=== PATIENT | female | born 1995 | race Caucasian/White ===

== ENCOUNTER → 2023-05-08 14:13 | Outpatient (BNVA) | payer OTHER, SELFPAY | PROVIDERS: Visit Provider Registered Nurse Neonatal Intensive Care | DX: R10.9 Unspecified abdominal pain (principal) | CPT/HCPCS: 81000; 81025 ==

== ENCOUNTER 2023-06-20 16:01 | Outpatient (CLI) | payer OTHER, SELFPAY ==
--- NOTE | 2023-06-20 | US_ITS ---
WS: [id number] US pelvic complete* [id number] HISTORY: RLQ pain COMPARISON: None available. Uterus: 9.8 cm x 5.1 cm x 3.6 cm. Normal size anteverted uterus. No fibroid or mass. Endometrium: 0.3 cm. Normal. Right ovary: 2.4 cm x 2.1 cm x 1.8 cm. Normal size and vascularity, no cystic or solid masses. Left ovary: 4.1 cm x 3.2 cm x 2.6 cm. Normal size and vascularity, no cystic or solid masses. Small follicle LEFT ovary measures 2.5 x 1.5 x 2.5 cm. No cyst. No free fluid in the cul-de-sac. IMPRESSION: Normal transabdominal pelvic ultrasound.
== END 2023-06-20 16:02 | disposition home or self-care (01) ==
PROVIDERS: Visit Provider Nurse Practitioner
DX: R10.31 Right lower quadrant pain (principal)
CPT/HCPCS: 76856

== ENCOUNTER → 2023-08-18 11:10 | Outpatient (BNVA) | payer OTHER, SELFPAY | PROVIDERS: PCP Nurse Practitioner; Visit Provider Podiatrist Foot & Ankle Surgery | DX: M79.672 Pain in left foot (principal); M77.42 Metatarsalgia, left foot; Q66.72 Congenital pes cavus, left foot | CPT/HCPCS: 73630; 99203 ==

== ENCOUNTER 2023-08-23 13:37 | Outpatient (CLI) | payer OTHER, SELFPAY ==
--- NOTE | 2023-08-23 13:42 | MR_ITS ---
WS: [id number] MRI LEFT SHOULDER HISTORY: SCAPULA PAIN COMPARISON: None available. TECHNIQUE: Multiplanar sequences of the shoulder joint are submitted. Normal AC joint. There is a small bony protrusion from the undersurface of the acromion with mild enc roachment upon the supraspinatus tendon and muscle. No subacromial or subdeltoid bursal distention. N ormal position of the biceps tendon. No os acromion. No rotator cuff muscle atrophy or edema. No rotator cuff tendon tear. No joint effusion. No labral te ar. IMPRESSION: 1. No labral tear. 2. Very small bony acromial protuberance encroaching upon the supraspinatus tendon.
== END 2023-08-23 13:38 | disposition home or self-care (01) ==
LOC: RAD 13:37
PROVIDERS: PCP Nurse Practitioner; Visit Provider Nurse Practitioner
DX: M25.512 Pain in left shoulder (principal)
CPT/HCPCS: 73221

== ENCOUNTER → 2023-10-20 10:26 | Outpatient (BNVA) | payer OTHER, SELFPAY | PROVIDERS: PCP Nurse Practitioner; Visit Provider Podiatrist Foot & Ankle Surgery | DX: M77.42 Metatarsalgia, left foot; Q66.72 Congenital pes cavus, left foot | CPT/HCPCS: 73630; 99213 ==

== ENCOUNTER → 2023-12-02 10:37 | Outpatient (BNVA) | payer OTHER, SELFPAY | PROVIDERS: PCP Nurse Practitioner; Visit Provider Podiatrist Foot & Ankle Surgery | DX: M77.42 Metatarsalgia, left foot (principal); Q66.72 Congenital pes cavus, left foot | CPT/HCPCS: 99213 ==

== ENCOUNTER 2024-01-06 13:16 | Outpatient (CLI) | payer OTHER, SELFPAY ==
--- NOTE | 2024-01-06 13:26 | MR_ITS ---
WS: [id number] MRI HEAD WITH CONTRAST TECHNIQUE: Sagittal T1, T2 axial, T2 axial FLAIR, axial susceptibility weighted imaging, axial diffus ion weighted images, and coronal T2 images were obtained. Pre and post-T1 axial and post T1 coronal i mages. ADC and FSPGR images. CLINICAL INFORMATION: CHANGE IN MIGRAINES W/BLURRED VISION COMPARISON: None. FINDINGS: No evidence of restricted diffusion to suggest acute ischemia. Ventricular system and basal cisterns are patent. Normal posterior fossa. Normal vascular flow voids at the skull base. No extra-axial flui d collections. No evidence of mass effect. Paranasal sinuses are well aerated. Mastoid air cells are well aerated. No abnormal gadolinium enhancement. No hemosiderin on susceptibility-weighted images. Normal optic ch iasm and pituitary infundibulum. Temporal lobes and hippocampal formations are normal in appearance. Small amount of patchy signal abnormality in the RIGHT posterior frontal lobe near the frontoparietal junction subcortical in location. This has a nonspecific appearance. No surrounding edema or abnorma l gadolinium enhancement. No mass effect. Crowding of the sulci in this area. No other suspicious int racranial signal abnormalities. MR/MR head wo/w con [id number] IMPRESSION: 1. No evidence of restricted diffusion to suggest acute ischemia. 2. Patchy nonspecific T2 signal normality at the RIGHT frontoparietal junction with some abnormal sulcation in this area. No abnormal enhancement. 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 Recommend 3-month follow-up MRI h ead without and with gadolinium enhancement to assess stability. 3. No other suspicious intracranial signal normalities. 4. No hemosiderin on susceptibility-weighted images.
[2024-01-06] MEDS: gadobenate dimeglumine 20 mL vial IV (14:45)
== END 2024-01-06 13:17 | disposition home or self-care (01) ==
LOC: RAD 13:17
PROVIDERS: PCP Nurse Practitioner; Visit Provider Nurse Practitioner
DX: G43.909 Migraine, unspecified, not intractable, without status migrainosus (principal); H53.8 Other visual disturbances
CPT/HCPCS: 70553; A9577

== ENCOUNTER 2024-05-03 09:53 | Outpatient (CLI) | payer OTHER, SELFPAY ==
--- NOTE | 2024-05-03 10:03 | US_ITS ---
WS: [id number] ULTRASOUND BREAST RIGHT TECHNIQUE: Ultrasound right breast focused area of concern. CLINICAL INFORMATION: RIGHT BREAST PAIN WITH LUMP COMPARISON: None. FINDINGS: Ultrasound area of concern in the RIGHT upper quadrant near the 10 o'clock position. Normal underlyin g parenchymal tissue. No cystic or solid lesions. No suspicious lesions to target for biopsy. Finding s are benign. Recommend annual screening mammography age 40 US/US breast RT limited* [id number] IMPRESSION: BI-RADS 2 benign Recommend annual screen mammography age 40
== END 2024-05-03 09:54 | disposition home or self-care (01) ==
LOC: RAD 09:55
PROVIDERS: PCP Nurse Practitioner; Visit Provider Nurse Practitioner
DX: N63.11 Unspecified lump in the right breast, upper outer quadrant (principal)
CPT/HCPCS: 76642

== ENCOUNTER 2024-05-29 15:16 | Emergency (ER) | payer OTHER, SELFPAY ==
[2024-05-29 15:21] VITALS: BP 114/76; PULSE 75; TEMP 36.4; O2SAT 97; BMI 32.5
[2024-05-29] MEDS: sodium chloride 0.9% 1,000 ML 999 ML IV (15:40)
[2024-05-29 15:44] VITALS: BP 113/73; PULSE 72; RESP 16; O2SAT 98
[2024-05-29 15:44] LABS: Basophils # 0.1 10^3/uL (0.0-0.1); Basophils % 0.5 %; Eosinophils # 0.1 10^3/uL (0.0-0.8); Eosinophils % 1.4 %; Hematocrit 44.3 % (36-47); Lymphocytes # 1.4 10^3/uL (0.8-4.8); Lymphocytes % 13.8 %; Mean Platelet Volume 11.6 fL (7.4-10.4); Monocytes # 0.7 10^3/uL (0.2-0.9); Monocytes % 6.3 %; Neutrophils # 7.95 10^3/uL (1.8-7.7); Neutrophils % 77.6 %; Nucleated Red Blood Cells % 0 %; Platelet Count 234 10^3/cmm (157-399); Red Blood Count 4.87 10^6/uL (3.85-5.65); Red Cell Distribution Width 13.2 % (12.1-15.1); White Blood Count 10.24 10^3/uL (3.29-11.43)
--- NOTE | 2024-05-29 15:45 | ED_ITS ---
Documented by User: JULIA Valladares 05/29/24 16:11 HPI - Nausea/Vomiting/Diarrhea 2 General: Chief complaint: Nausea/Vomiting/Diarrhea Stated complaint: diarreah ([facility] ref[facility]) Time Seen by Provider: 05/29/24 15:32 Source: patient Mode of arrival: ambulatory Limitations: no limitations History of Present Illness: Patient is a 29-year-old female presents to ED today at the request of the [facility] for evaluation of diarrhea. Patient states about 2 weeks ago she began having nausea, vomiting, diarrhea. She states the vomiting lasted approximately a week before subsiding. She has not had any additional vomiting over the past week. She has continued to feel incredibly nauseous with eating especially with meat. She states the diarrhea has persisted and at its worst will have approximately 20 loose/watery stools a day. She is not having any bloody stools. She has occasional mild abdominal cramping. She is not having any systemic symptoms/no fevers. She arrives with completely stable vital signs. She had a similar episode approximately a year ago with the diarrhea and was subsequently evaluated by GI in [place]. She states she was essentially told there was no indication for additional workup. Symptoms eventually subsided and have not returned until now. Denies recent antibiotic use. No known poor food exposure or sick contacts. MD elicited complaint: nausea, vomiting and diarrhea Onset (ago): week(s) Description of diarrhea: watery Associated nausea: Yes Associated abdominal pain: Yes Location of pain: Diffuse Radiation: diffuse Pain consistency: intermittent Severity: mild Quality: cramping Exacerbating factors: eating Relieving factors: bowel movement Associated symtoms: Reports nausea; Denies chest pain, dizziness, dysuria, fatigue, headache(s) or malaise Related Data Home Medications Medication Instructions Recorded Confirmed fluoxetine 20 mg capsule cap PO 05/08/23 12/02/23 Previous Rx's Medication Instructions Recorded Custom Inserts L3020 #1 ea 12/02/23 ondansetron 4 mg disintegrating 4 mg PO Q8H PRN nausea and 05/29/24 tablet vomiting #14 tabs Allergies Allergy/AdvReac Type Severity Reaction Status Date / Time Penicillins Allergy ALGY-Anaphy Verified 05/29/24 15:28 laxis pineapple Allergy ALGY-Swell Verified 05/29/24 15:28 Lip/Tongue/Throat Review of Systems 2 Const: Denies: fever(s), chills, body aches, fatigue or malaise Card: Denies: chest pain Resp: Denies: dyspnea GI: Reports: abdominal pain, nausea, vomiting, diarrhea and GI cramping; Denies: hematemesis, constipation, hematochezia or melena : Denies: flank pain, difficulty voiding, dysuria, urinary frequency, urinary urgency, urinary hesitancy or pelvic pain Musc: Denies: back pain Skin/Breast: Denies: rash Neuro: Denies: headache(s) or dizziness Physical Exam 2 Const: COMMON NORMALS: no acute distress, average body habitus, patient oriented x3, no limitations, healthy appearing, alert and well nourished G ENERAL APPEARANCE: cooperative ORIENTATION/CONSCIOUSNESS: Yes awake, Yes oriented to person, Yes oriented to place and Yes oriented to time Eye: COMMON NORMALS: no scleral icterus Resp: COMMON NORMALS: normal respiratory effort and clear to auscultation bilaterally AUSCULTATION: clear to auscultation bilaterally Cardio: COMMON NORMALS: regular rate and regular rhythm RATE: regular rate RHYTHM: regular rhythm GI: COMMON NORMALS: Normal to inspection, nondistended, normoactive bowel sounds present, Soft to palpation, No hepatosplenomegaly present and no masses INSPECTION: Yes normal to inspection AUSCULTATION: Yes normoactive bowel sounds PALPATION: Yes Soft to palpation, Yes Tenderness to palpation present (GI) (mild RUQ/epigastric; non-surgical exam), No Guarding due to palpation present (GI), No Rigid due to palpation and Yes No hepatosplenomegaly present : COMMON NORMALS: Yes no CVA tenderness BLADDER/KIDNEY EXAM: Yes no CVA tenderness Back/Pelvis: COMMON NORMALS: no CVA tenderness and thoracic and lumbar spine normal to inspection Extremity: GENERAL: Yes normal exam except as noted Neuro: COMMON NORMALS: patient oriented x3, moves all extremities, no focal motor deficits, no sensory deficits noted and gait normal S ENSORIUM/ORIENTATION: Yes alert, Yes oriented to person, Yes oriented to place and Yes oriented to time Skin: COMMON NORMALS: no rashes or lesions noted GENERAL SKIN EXAM: no rashes or lesions noted Course 2 Vital Signs: Vital signs: Vital Signs Temperature 97.6 F 05/29/24 15:21 Pulse Rate 89 05/29/24 16:46 Respiratory Rate 14 05/29/24 16:46 Blood Pressure 112/69 05/29/24 16:46 Pulse Oximetry 98 05/29/24 16:46 Oxygen Delivery Me thod Room Air 05/29/24 16:46 MDM - Nausea/Vomiting/Diarrhea Lab Data 05/29/24 15:38 05/29/24 15:38 Radiology Impressions Abdomen/Pelvis CT 05/29/24 16:25 IMPRESSION: 1. No acute findings. 2. Left ovary has a 2.7 cm simple cyst and a 2.1 cm corpus luteal cyst. COMMENTS: Consistent with the [employer]'s Incidental Findings Committee white paper (J Am Juan Radiol 2018): Any incidental renal lesion less than 1 cm or classified as too small to characterize, or any incidental cystic renal lesion characterized as simple-appearing, is likely benign. No follow-up imaging is recommended for these lesions per consensus recommendations based on imaging criteria. Laboratory Results WBC 10.24 10^3/uL (3.29-11.43) 05/29/24 15:38 RBC 4.87 10^6/uL (3.85-5.65) 05/29/24 15:38 Hgb 14.60 g/dL (11.27-16.99) 05/29/24 15:38 Hct 44.3 % (36-47) 05/29/24 15:38 MCV 91.0 fl (85-98) 05/29/24 15:38 MCH 30.0 pg (27-33) 05/29/24 15:38 MCHC 33.0 g/dL (30-55) 05/29/24 15:38 RDW 13.2 % (12.1-15.1) 05/29/24 15:38 Plt Count 234 10^3/cmm (157-399) 05/29/24 15:38 MPV 11.6 fL (7.4-10.4) H 05/29/24 15:38 Neut % (Auto) 77.6 % 05/29/24 15:38 Lymph % (Auto) 13.8 % 05/29/24 15:38 [place] % (Auto) 6.3 % 05/29/24 15:38 Eos % (Auto) 1.4 % 05/29/24 15:38 Baso % (Auto) 0.5 % 05/29/24 15:38 Neut # (Auto) 7.95 10^3/uL (1.8-7.7) H 05/29/24 15:38 Lymph # (Auto) 1.4 10^3/uL (0.8-4.8) 05/29/24 15:38 [place] # (Auto) 0.7 10^3/uL (0.2-0.9) 05/29/24 15:38 Eos # (Auto) 0.1 10^3/uL (0.0-0.8) 05/29/24 15:38 Baso # (Auto) 0.1 10^3/uL (0.0-0.1) 05/29/24 15:38 Nucleated RBC % (auto) 0 % 05/29/24 15:38 Nucleated RBCs # 0.0 /100WBC 05/29/24 15:38 Sodium 135 mmol/L (136-145) L 05/29/24 15:38 Potassium 4.1 mmol/L (3.5-5.1) 05/29/24 15:38 Chloride 101 mmol/L (98-107) 05/29/24 15:38 Carbon Dioxide 23 mmol/L (22-29) 05/29/24 15:38 Anion Gap 15.1 (5-19) 05/29/24 15:38 BUN 13 mg/dL (6-20) 05/29/24 15:38 Creatinine 0.8 mg/dL (0.5-0.9) 05/29/24 15:38 GFR Calculation 84.8 mL/min (90-130) L 05/29/24 15:38 Glucose 88 mg/dL (65-115) 05/29/24 15:38 Calculated Osmolality 280 mOsm/kg (285-295) L 05/29/24 15:38 Calcium 9.0 mg/dL (8.5-10.5) 05/29/24 15:38 Total Bilirubin 0.6 mg/dL (0.15-1.2) 05/29/24 15:38 AST 20 U/L (0-32) 05/29/24 15:38 ALT 24 U/L (0-33) 05/29/24 15:38 Alkaline Phosphatase 57 U/L (35-105) 05/29/24 15:38 Total Protein 7.2 g/dL (6.6-8.7) 05/29/24 15:38 Albumin 4.4 g/dL (3.5-5.2) 05/29/24 15:38 Globulin 2.8 g/dL (1.3-4.6) 05/29/24 15:38 Lipase 40 U/L (13-60) 05/29/24 15:38 HCG, Qual Negative (Negative) 05/29/24 15:38 Urine Color Yellow (Yellow) 05/29/24 16:23 Urine Appearance Cloudy (CLEAR) A 05/29/24 16:23 Urine pH 6.0 (5-7) 05/29/24 16:23 Ur Specific Cameron 1.012 (1.005-1.030) 05/29/24 16:23 Urine Protein Negative (Negative) 05/29/24 16:23 Urine Glucose (UA) Negative (Normal) 05/29/24 16:23 Urine Ketones Negative (Negative) 05/29/24 16:23 Urine Blood Negative (Negative) 05/29/24 16:23 Urine Nitrate Negative (Negative) 05/29/24 16:23 Urine Bilirubin Negative (Negative) 05/29/24 16:23 Urine Urobilinogen 1.0 mg/dL (Negative) 05/29/24 16:23 Ur Leukocyte Esterase Negative (Negative) 05/29/24 16:23 Urine RBC 0-2 /hpf (0-2) 05/29/24 16:23 Urine WBC 0-5 /hpf (0-5) 05/29/24 16:23 Ur Squamous Epith Cells 0-5 /hpf (0-5) 05/29/24 16:23 Amorphous Sediment Not Reportable 05/29/24 16:23 Urine Bacteria None seen /hpf (NONE) 05/29/24 16:23 Hyaline Casts 0-4 /lpf H 05/29/24 16:23 Discharge Plan Discharge Patient Disposition: Home Clinical Impression: Nausea, vomiting and diarrhea Condition: Stable Prescriptions: New ondansetron 4 mg tablet,disintegrating 4 mg PO Q8H PRN (Reason: nausea and vomiting) Qty: 14 0RF No Action fluoxetine 20 mg capsule PO (DME) Custom Inserts L3020 See Rx Instructions .Route .MEDSUPPLY Qty: 1 0RF Rx Instructions: As directed Discharge Orders: Discharge ED (Routine); Ordered 05/29/24 Ordered By: Alicia Sánchez Referrals: Sonia Carbone FNP [Primary Care Provider] - 4-7 days Discharge Diet: Advance as tolerated Discharge Activity: Resume usual activity Patient Instructions: Acute Nausea and Vomiting (DC), Acute Diarrhea (ED) Activity Restrictions/Additional Instructions: As we discussed, if you are not able to give a stool sample here, [facility]. Blood work overall was unremarkable. UA without evidence of infection. Coding Level of Care Code ED Town Marshal for Chg Fwd Documented by User: Alicia Sánchez MD 05/29/24 17:22 HPI - Nausea/Vomiting/Diarrhea 2 General: Chief complaint: Nausea/Vomiting/Diarrhea Stated complaint: diarreah ([facility] ref[facility]) Time Seen by Provider: 05/29/24 15:32 Related Data Home Medications Medication Instructions Recorded Confirmed fluoxetine 20 mg capsule cap PO 05/08/23 12/02/23 Previous Rx's Medication Instructions Recorded Custom Inserts L3020 #1 ea 12/02/23 ondansetron 4 mg disintegrating 4 mg PO Q8H PRN nausea and 05/29/24 tablet vomiting #14 tabs Allergies Allergy/AdvReac Type Severity Reaction Status Date / Time Penicillins Allergy ALGY-Anaphy Verified 05/29/24 15:28 laxis pineapple Allergy ALGY-Swell Verified 05/29/24 15:28 Lip/Tongue/Throat Course 2 Vital Signs: Vital signs: Vital Signs Temperature 97.6 F 05/29/24 15:21 Pulse Rate 89 05/29/24 16:46 Respiratory Rate 14 05/29/24 16:46 Blood Pressure 112/69 05/29/24 16:46 Pulse Oximetry 98 05/29/24 16:46 Oxygen Delivery Me thod Room Air 05/29/24 16:46 MDM - Nausea/Vomiting/Diarrhea Medical Decision Making Patient presents with vomiting she feels much improved here blood work CT is normal she is tolerating p.o. she stable for discharge she is follow-up with PCP return if worsening will prescribe her Zofran. Medical Records I reviewed the patient's medical records. Lab Data I reviewed the patient's lab results. 05/29/24 15:38 05/29/24 15:38 Radiology Impressions Abdomen/Pelvis CT 05/29/24 16:25 IMPRESSION: 1. No acute findings. 2. Left ovary has a 2.7 cm simple cyst and a 2.1 cm corpus luteal cyst. COMMENTS: Consistent with the [employer]'s Incidental Findings Committee white paper (J Am Juan Radiol 2018): Any incidental renal lesion less than 1 cm or classified as too small to characterize, or any incidental cystic renal lesion characterized as simple-appearing, is likely benign. No follow-up imaging is recommended for these lesions per consensus recommendations based on imaging criteria. Laboratory Results WBC 10.24 10^3/uL (3.29-11.43) 05/29/24 15:38 RBC 4.87 10^6/uL (3.85-5.65) 05/29/24 15:38 Hgb 14.60 g/dL (11.27-16.99) 05/29/24 15:38 Hct 44.3 % (36-47) 05/29/24 15:38 MCV 91.0 fl (85-98) 05/29/24 15:38 MCH 30.0 pg (27-33) 05/29/24 15:38 MCHC 33.0 g/dL (30-55) 05/29/24 15:38 RDW 13.2 % (12.1-15.1) 05/29/24 15:38 Plt Count 234 10^3/cmm (157-399) 05/29/24 15:38 MPV 11.6 fL (7.4-10.4) H 05/29/24 15:38 Neut % (Auto) 77.6 % 05/29/24 15:38 Lymph % (Auto) 13.8 % 05/29/24 15:38 [place] % (Auto) 6.3 % 05/29/24 15:38 Eos % (Auto) 1.4 % 05/29/24 15:38 Baso % (Auto) 0.5 % 05/29/24 15:38 Neut # (Auto) 7.95 10^3/uL (1.8-7.7) H 05/29/24 15:38 Lymph # (Auto) 1.4 10^3/uL (0.8-4.8) 05/29/24 15:38 [place] # (Auto) 0.7 10^3/uL (0.2-0.9) 05/29/24 15:38 Eos # (Auto) 0.1 10^3/uL (0.0-0.8) 05/29/24 15:38 Baso # (Auto) 0.1 10^3/uL (0.0-0.1) 05/29/24 15:38 Nucleated RBC % (auto) 0 % 05/29/24 15:38 Nucleated RBCs # 0.0 /100WBC 05/29/24 15:38 Sodium 135 mmol/L (136-145) L 05/29/24 15:38 Potassium 4.1 mmol/L (3.5-5.1) 05/29/24 15:38 Chloride 101 mmol/L (98-107) 05/29/24 15:38 Carbon Dioxide 23 mmol/L (22-29) 05/29/24 15:38 Anion Gap 15.1 (5-19) 05/29/24 15:38 BUN 13 mg/dL (6-20) 05/29/24 15:38 Creatinine 0.8 mg/dL (0.5-0.9) 05/29/24 15:38 GFR Calculation 84.8 mL/min (90-130) L 05/29/24 15:38 Glucose 88 mg/dL (65-115) 05/29/24 15:38 Calculated Osmolality 280 mOsm/kg (285-295) L 05/29/24 15:38 Calcium 9.0 mg/dL (8.5-10.5) 05/29/24 15:38 Total Bilirubin 0.6 mg/dL (0.15-1.2) 05/29/24 15:38 AST 20 U/L (0-32) 05/29/24 15:38 ALT 24 U/L (0-33) 05/29/24 15:38 Alkaline Phosphatase 57 U/L (35-105) 05/29/24 15:38 Total Protein 7.2 g/dL (6.6-8.7) 05/29/24 15:38 Albumin 4.4 g/dL (3.5-5.2) 05/29/24 15:38 Globulin 2.8 g/dL (1.3-4.6) 05/29/24 15:38 Lipase 40 U/L (13-60) 05/29/24 15:38 HCG, Qual Negative (Negative) 05/29/24 15:38 Urine Color Yellow (Yellow) 05/29/24 16:23 Urine Appearance Cloudy (CLEAR) A 05/29/24 16:23 Urine pH 6.0 (5-7) 05/29/24 16:23 Ur Specific Cameron 1.012 (1.005-1.030) 05/29/24 16:23 Urine Protein Negative (Negative) 05/29/24 16:23 Urine Glucose (UA) Negative (Normal) 05/29/24 16:23 Urine Ketones Negative (Negative) 05/29/24 16:23 Urine Blood Negative (Negative) 05/29/24 16:23 Urine Nitrate Negative (Negative) 05/29/24 16:23 Urine Bilirubin Negative (Negative) 05/29/24 16:23 Urine Urobilinogen 1.0 mg/dL (Negative) 05/29/24 16:23 Ur Leukocyte Esterase Negative (Negative) 05/29/24 16:23 Urine RBC 0-2 /hpf (0-2) 05/29/24 16:23 Urine WBC 0-5 /hpf (0-5) 05/29/24 16:23 Ur Squamous Epith Cells 0-5 /hpf (0-5) 05/29/24 16:23 Amorphous Sediment Not Reportable 05/29/24 16:23 Urine Bacteria None seen /hpf (NONE) 05/29/24 16:23 Hyaline Casts 0-4 /lpf H 05/29/24 16:23 All radiology interpretation(s) finalized by discharge Discharge Plan Discharge Patient Disposition: Home Clinical Impression: Nausea, vomiting and diarrhea Condition: Stable Prescriptions: New ondansetron 4 mg tablet,disintegrating 4 mg PO Q8H PRN (Reason: nausea and vomiting) Qty: 14 0RF No Action fluoxetine 20 mg capsule PO (DME) Custom Inserts L3020 See Rx Instructions .Route .MEDSUPPLY Qty: 1 0RF Rx Instructions: As directed Discharge Orders: Discharge ED (Routine); Ordered 05/29/24 Ordered By: Alicia Sánchez Referrals: Sonia Carbone FNP [Primary Care Provider] - 4-7 days Discharge Diet: Advance as tolerated Discharge Activity: Resume usual activity Patient Instructions: Acute Nausea and Vomiting (DC), Acute Diarrhea (ED) Activity Restrictions/Additional Instructions: As we discussed, if you are not able to give a stool sample here, [facility]. Blood work overall was unremarkable. UA without evidence of infection. Coding Level of Care Code ED Town Marshal for Damien Lu
[2024-05-29 15:58] LABS: HCG, Serum Qual Negative (Negative)
[2024-05-29] MEDS: ondansetron 2 mg/ML SDV 2 mL 4 MG IVP (16:01)
[2024-05-29] MEDS: lidocaine 2% viscous 15 ML, aluminum-mag hydrox-simethicon 30 ML, sucralfate oral liq 1 GM PO (16:01)
[2024-05-29 16:02] VITALS: BP 138/88; PULSE 92; RESP 18; O2SAT 95
[2024-05-29 16:03] LABS: Alanine Aminotransferase 24 U/L (0-33); Albumin Level 4.4 g/dL (3.5-5.2); Alkaline Phosphatase 57 U/L (35-105); Anion Gap 15.1 (5-19); Aspartate Amino Transferase 20 U/L (0-32); Blood Urea Nitrogen 13 mg/dL (6-20); Carbon Dioxide 23 mmol/L (22-29); Chloride 101 mmol/L (98-107); Creatinine Clr Calc Pharmacy 110.2277; Globulin 2.8 g/dL (1.3-4.6); Glomerular Filtration Rate 84.8 mL/min (90-130); Glucose 88 mg/dL (65-115); Lipase 40 U/L (13-60); Osmolality Calculated 280 mOsm/kg (285-295); Potassium 4.1 mmol/L (3.5-5.1); Sodium 135 mmol/L (136-145); Total Bilirubin 0.6 mg/dL (0.15-1.2); Total Protein 7.2 g/dL (6.6-8.7)
--- NOTE | 2024-05-29 16:24 | PC.NURSE ---
Patient unable to keep the GI cocktail down. Reports that she just kept dry heaving until she lost it. Otherwise feels a little better. Provider notified of vomiting.
--- NOTE | 2024-05-29 16:25 | CTR_ITS ---
PROCEDURE INFORMATION: Exam: CT Abdomen And Pelvis With Contrast Exam date and time: 05/29/2024 4:34 PM Age: 29 years old Clinical indication: Nausea and vomiting; Additional info: N/v/d; Abdominal cramping TECHNIQUE: Imaging protocol: Computed tomography of the abdomen and pelvis with contrast. Radiation optimization: All CT scans at this facility use at least one of these dose optimization techniques: automated exposure control; mA and/or kV adjustment per patient size (includes targeted exams where dose is matched to clinical indication); or iterative reconstruction. Contrast material: OMNI 350; Contrast volume: 100 ml; Contrast route: INTRAVENOUS (IV); COMPARISON: US pelvic complete* [id number] 06/20/2023 4:36 PM RADIATION DOSE METRICS: Total DLP (mGy-cm): 777 FINDINGS: Lungs: The visualized portions of the lungs are unremarkable. Liver: The liver is unremarkable. Gallbladder and biliary ducts: The gallbladder is unremarkable. No biliary dilation. Pancreas: The pancreas is unremarkable. Spleen: The spleen is unremarkable. Adrenal glands: The adrenal glands are unremarkable. Kidneys and ureters: There is a simple cyst in the right kidney. The left kidney is unremarkable. Stomach and bowel: There is no bowel wall thickening. No bowel obstruction. Appendix: Appendix is not identified. No findings to suggest acute appendicitis. Intraperitoneal space: No significant peritoneal free fluid. No free peritoneal air. Vasculature: The vasculature is unremarkable. No aneurysm. Lymph nodes: No enlarged lymph nodes by size criteria. Urinary bladder: The bladder is unremarkable. Reproductive: 2.7 cm simple cyst within the left ovary. There is also a 2.1 cm corpus luteal cyst within the left ovary. The right ovary and uterus appear unremarkable. Bones/joints: Sacral Tarlov cyst. Scattered Schmorl's nodes and degenerative changes of the spine. Soft tissues: Soft tissues are unremarkable as visualized. CT/CT abdomen pelvis w con* [id number] IMPRESSION: 1. No acute findings. 2. Left ovary has a 2.7 cm simple cyst and a 2.1 cm corpus luteal cyst. COMMENTS: Consistent with the [employer]'s Incidental Findings Committee white paper (J Am Juan Radiol 2018): Any incidental renal lesion less than 1 cm or classified as too small to characterize, or any incidental cystic renal lesion characterized as simple-appearing, is likely benign. No follow-up imaging is recommended for these lesions per consensus recommendations based on imaging criteria.
[2024-05-29] MEDS: iohexol 350 mg/mL 500 mL Btl (per mL) IV (16:37)
[2024-05-29 16:44] LABS: Bilirubin Urine Negative (Negative); Blood Urine Negative (Negative); Glucose Urine UA Negative (Normal); Ketones Urine Negative (Negative); Leukocyte Esterase Urine Negative (Negative); Nitrate Urine Negative (Negative); Protein Urine Negative (Negative); Specific Gravity, Urine 1.012 (1.005-1.030); Urine Appearance Cloudy (CLEAR); Urine Color Yellow (Yellow)
[2024-05-29 16:46] VITALS: BP 112/69; PULSE 89; RESP 14; O2SAT 98
[2024-05-29 16:49] LABS: Add Urine Microscopic? YES; Bacteria Urine None Seen /hpf; Hyaline Casts Urine 0-4 /lpf; RBC Urine 0-2 /hpf (0-2); Squamous Epithelial Cell Urine 0-5 /hpf (0-5); WBC Urine 0-5 /hpf (0-5)
--- NOTE | 2024-05-29 17:00 | PC.NURSE ---
Fluid challenge admin started at 1644- pt tolerating ice chips well. Given apple juice and saltine crackers @ 1701.
[2024-05-29 17:38] VITALS: BP 92/69; PULSE 65; RESP 14; O2SAT 100
== END 2024-05-29 17:42 | disposition home or self-care (01) ==
PROVIDERS: Physician Assistant; Emergency Provider Emergency Medicine; PCP Nurse Practitioner
DX: R11.2 Nausea with vomiting, unspecified (principal); R19.7 Diarrhea, unspecified
CPT/HCPCS: 36415; 74177; 80053; 81001; 83690; 84703; 85025; 96361; 96374; 99285; J2405; J7030

== ENCOUNTER 2024-05-30 12:59 | Outpatient (CLI) | payer OTHER, SELFPAY ==
--- NOTE | 2024-05-30 13:06 | MR_ITS ---
WS: [id number] MRI BRAIN WITH AND WITHOUT CONTRAST HISTORY: CHANGE IN MIGRAINES W/BLURRED VISION COMPARISON: 02/02/2024 TECHNIQUE: Multiplanar imaging performed through the brain with MultiHance 18 ml's IV. Reidentified is a focal region of patchy signal abnormality in the RIGHT posterior frontal lobe near the frontoparietal junction. Similar to the prior examination with a few cystic areas in crowding of the sulci. No interval change and there is no enhancement. No atrophy or prior infarct. No hemorrhage or mass effect. No temporal lobe atrophy. No susceptibility artifacts or prior lacunar infarcts. Ventricles and extra-axial spaces are normal. Clivus and pituitary gland are normal. Visualized posterior fossa and brainstem are also normal. Postcontrast images are negative for masses or vascular malformations. Dural venous sinuses are normal. Paranasal sinuses: Well aerated with no significant disease. Mastoid air cells: Normal. Calvarium and scalp: Normal. MR/MR head wo/w con [id number] IMPRESSION: 1. No acute infarct or abnormal enhancement. 2. Stable patchy nonspecific T2 signal abnormality in the RIGHT frontal pariet al junction. Similar to the prior study with no enhancement. This is probably f rom a prior remote insult. Similar to the prior examination. 3. Normal ventricles.
[2024-05-30] MEDS: gadobenate dimeglumine 20 mL vial IV (13:33)
== END 2024-05-30 13:00 | disposition home or self-care (01) ==
LOC: RAD 13:00
PROVIDERS: PCP Nurse Practitioner; Visit Provider Nurse Practitioner
DX: R94.02 Abnormal brain scan (principal)
CPT/HCPCS: 70553

== ENCOUNTER 2024-08-04 11:57 | Emergency (ER) | payer OTHER, SELFPAY ==
[2024-08-04 12:48] VITALS: BP 133/88; PULSE 68; RESP 18; TEMP 36.7; O2SAT 100; BMI 34.5
--- NOTE | 2024-08-04 13:34 | ED_ITS ---
HPI - Back Pain/Injury 2 General: Chief Complaint: Back Pain/Injury Stated Complaint: low back pain Time Seen by Provider: 08/04/24 13:23 History of Present Illness: 29-year-old female presents emergency ro om complaining of low back pain. Pain in the low back radiating into the right lateral thigh. She also has a little bit of dysuria. She denies any hematuria. Pain has been for for the last few days. She cannot recall particular precipitating injury she did notice when trying to lift her children and seem to be more more painful. Associated symptoms: Deny abdominal pain, chills, dysuria, fever(s) or urinary urgency Related Data Previous Rx's Medication Instructions Recorded Custom Inserts [id number] #1 ea 12/02/23 diclofenac sodium 75 mg 75 mg PO Q12H PRN pain #20 tabs 08/04/24 tablet,delayed release prednisone 20 mg tablet 20 mg PO TID #15 tabs 08/04/24 tizanidine 4 mg tablet 4 mg PO Q6H PRN muscle spasticity 08/04/24 #20 tabs Allergies Allergy/AdvReac Type Severity Reaction Status Date / Time Penicillins Allergy ALGY-Anaphy Verified 05/29/24 15:28 laxis pineapple Allergy ALGY-Swell Verified 05/29/24 15:28 Lip/Tongue/Throat Review of Systems 2 Const: Denies: fever(s) or chills Card: Denies: chest pain Resp: Denies: dyspnea GI: Denies: abdominal pain : Denies: dysuria, urinary frequency or urinary urgency Musc: Reports: back pain; Denies: neck pain Skin/Breast: Denies: rash [facility] ED 2 PFSH: Medical History (Updated 08/04/24 @ 16:27 by Pito Bennett DO) Cavus deformity of left foot Metatarsalgia of left foot Physical Exam 2 Const: COMMON NORMALS: no acute distress GENERAL APPEARANCE: cooperative and comfortable ORIENTATION/CONSCIOUSNESS: Yes awake, Yes oriented to person, Yes oriented to place and Yes oriented to time HENMT: COMMON NORMALS: normocephalic, atraumatic and hearing grossly normal bilaterally HEAD & SCALP: normocephalic and atraumatic Resp: COMMON NORMALS: normal respiratory effort, No retractions, No use of accessory muscles and clear to auscultation bilaterally AUSCULTATION: clear to auscultation bilaterally Cardio: COMMON NORMALS: regular rate, regular rhythm and No murmurs present (Cardio) RATE: regular rate RHYTHM: regular rhythm GI: COMMON NORMALS: Soft to palpation and No hepatosplenomegaly present A USCULTATION: Yes normoactive bowel sounds PALPATION: Yes Soft to palpation, No Tenderness to palpation present (GI), No Guarding due to palpation present (GI) and Yes No hepatosplenomegaly present Extremity: COMMON NORMALS: normal to inspection, capillary refill normal, no clubbing, cyanosis or edema, no calf tenderness and no pedal edema Neuro: SENSORIUM/ORIENTATION: Yes oriented to person, Yes oriented to place and Yes oriented to time OTHER: Deep tendon reflexes in the lower extremities +1 in the right patellar tendon +2 in the left patellar tendon straight leg raising negative neurovascularly intact dorsum plantarflexion active 5 of 5. Skin: COMMON NORMALS: no rashes or lesions noted GENERAL SKIN EXAM: no rashes or lesions noted Course 2 Vital Signs: Vital signs: Vital Signs Temperature 98.1 F 08/04/24 12:48 Pulse Rate 54 L 08/04/24 16:44 Respiratory Rate 18 08/04/24 12:48 Blood Pressure 99/53 08/04/24 16:44 Pulse Oximetry 100 08/04/24 16:44 Oxygen Delivery Me thod Room Air 08/04/24 12:48 MDM - Back Pain/Injury Medical Decision Making Patient has improvement of her symptoms we will discharge home with steroid taper diclofenac and tizanidine. UA was negative. Follow-up with primary care if not improving or worsens may need further evaluation or treatment options as directed by primary care. Medical Records I reviewed the patient's medical records. Labs I reviewed the patient's lab results. 08/04/24 14:00 08/04/24 14:00 Laboratory Results WBC 6.15 10^3/uL (3.29-11.43) 08/04/24 14:00 RBC 4.79 10^6/uL (3.85-5.65) 08/04/24 14:00 Hgb 14.30 g/dL (11.27-16.99) 08/04/24 14:00 Hct 43.7 % (36-47) 08/04/24 14:00 MCV 91.2 fl (85-98) 08/04/24 14:00 MCH 29.9 pg (27-33) 08/04/24 14:00 MCHC 32.7 g/dL (30-55) 08/04/24 14:00 RDW 12.9 % (12.1-15.1) 08/04/24 14:00 Plt Count 256 10^3/cmm (157-399) 08/04/24 14:00 MPV 11.4 fL (7.4-10.4) H 08/04/24 14:00 Neut % (Auto) 64.2 % 08/04/24 14:00 Lymph % (Auto) 26.8 % 08/04/24 14:00 [place] % (Auto) 5.2 % 08/04/24 14:00 Eos % (Auto) 2.8 % 08/04/24 14:00 Baso % (Auto) 0.7 % 08/04/24 14:00 Neut # (Auto) 3.95 10^3/uL (1.8-7.7) 08/04/24 14:00 Lymph # (Auto) 1.7 10^3/uL (0.8-4.8) 08/04/24 14:00 [place] # (Auto) 0.3 10^3/uL (0.2-0.9) 08/04/24 14:00 Eos # (Auto) 0.2 10^3/uL (0.0-0.8) 08/04/24 14:00 Baso # (Auto) 0.0 10^3/uL (0.0-0.1) 08/04/24 14:00 Nucleated RBC % (auto) 0 % 08/04/24 14:00 Nucleated RBCs # 0.0 /100WBC 08/04/24 14:00 Sodium 139 mmol/L (136-145) 08/04/24 14:00 Potassium 4.3 mmol/L (3.5-5.1) 08/04/24 14:00 Chloride 103 mmol/L (98-107) 08/04/24 14:00 Carbon Dioxide 26 mmol/L (22-29) 08/04/24 14:00 Anion Gap 14.3 (5-19) 08/04/24 14:00 BUN 15 mg/dL (6-20) 08/04/24 14:00 Creatinine 0.8 mg/dL (0.5-0.9) 08/04/24 14:00 GFR Calculation 84.8 mL/min (90-130) L 08/04/24 14:00 Glucose 78 mg/dL (65-115) 08/04/24 14:00 Calculated Osmolality 288 mOsm/kg (285-295) 08/04/24 14:00 Calcium 9.2 mg/dL (8.5-10.5) 08/04/24 14:00 Total Bilirubin 0.4 mg/dL (0.15-1.2) 08/04/24 14:00 AST 13 U/L (0-32) 08/04/24 14:00 ALT 10 U/L (0-33) 08/04/24 14:00 Alkaline Phosphatase 56 U/L (35-105) 08/04/24 14:00 Total Protein 7.2 g/dL (6.6-8.7) 08/04/24 14:00 Albumin 4.7 g/dL (3.5-5.2) 08/04/24 14:00 Globulin 2.5 g/dL (1.3-4.6) 08/04/24 14:00 Urine Color Yellow (Yellow) 08/04/24 15:43 Urine Appearance Clear (CLEAR) 08/04/24 15:43 Urine pH 7.0 (5-7) 08/04/24 15:43 Ur Specific [place] 1.020 (1.005-1.030) 08/04/24 15:43 Urine Protein Negative (Negative) 08/04/24 15:43 Urine Glucose (UA) Negative (Normal) 08/04/24 15:43 Urine Ketones Negative (Negative) 08/04/24 15:43 Urine Blood Negative (Negative) 08/04/24 15:43 Urine Nitrate Negative (Negative) 08/04/24 15:43 Urine Bilirubin Negative (Negative) 08/04/24 15:43 Urine Urobilinogen 0.2 mg/dL (Negative) 08/04/24 15:43 Ur Leukocyte Esterase Negative (Negative) 08/04/24 15:43 Urine RBC 3-5 /hpf (0-2) 08/04/24 15:43 Urine WBC 0-5 /hpf (0-5) 08/04/24 15:43 Ur Squamous Epith Cells 0-5 /hpf (0-5) 08/04/24 15:43 Amorphous Sediment Not Reportable 08/04/24 15:43 Urine Bacteria None seen /hpf (NONE) 08/04/24 15:43 Hyaline Casts 0-4 /lpf H 08/04/24 15:43 No radiology studies performed this visit Discharge Plan Discharge Patient Disposition: Home Clinical Impression: Lumbar radiculopathy Condition: Stable Prescriptions: New tizanidine 4 mg tablet 4 mg PO Q6H PRN (Reason: muscle spasticity) Qty: 20 0RF Rx Instructions: do not exceed 3 doses per 24 hrs prednisone 20 mg tablet 20 mg PO TID Qty: 15 0RF Rx Instructions: 1 p.o. 3 times daily x3 days, 1 p.o. twice daily x2 days, 1 p.o. daily x2 days diclofenac sodium 75 mg tablet,delayed release (DR/EC) 75 mg PO Q12H PRN (Reason: pain) Qty: 20 0RF No Action (DME) Custom Inserts L3020 See Rx Instructions .Route .MEDSUPPLY Qty: 1 0RF Rx Instructions: As directed Discharge Orders: Discharge ED (Routine); Ordered 08/04/24 Ordered By: Pito Bennett Referrals: Sonia Carbone FNP [Primary Care Provider] - Discharge Diet: Usual diet Discharge Activity: Limit activity as instructed Patient Instructions: Lumbar Radiculopathy (ED), Opioid Safety, Pain Management Activity Restrictions/Additional Instructions: Thank you for choosing [facility] for your healthcare needs today. It is very important that you follow up as instructed or that you return to the Emergency Department should you have concerns or if your condition changes or worsens in any way. You were seen in the emergency room with complaints of back pain. There is no sign of cauda equina syndrome. Will start you on a steroid taper to begin tomorrow we also gave you diclofenac and muscle relaxer. Use the muscle relaxer and diclofenac as needed for discomfort. Recommend you follow-up with your primary care doctor for further treatment or evaluation options if symptoms do not improve with these medications. Urinalysis was normal there is no sign of bladder infection. Coding Level of Care Code ED Concrete Journeyman for Damien Lu
[2024-08-04 14:08] LABS: Basophils % 0.7 %; Eosinophils # 0.2 10^3/uL (0.0-0.8); Eosinophils % 2.8 %; Hematocrit 43.7 % (36-47); Lymphocytes # 1.7 10^3/uL (0.8-4.8); Lymphocytes % 26.8 %; Mean Corpuscular HGB Conc 32.7 g/dL (30-55); Mean Corpuscular Hemoglobin 29.9 pg (27-33); Mean Corpuscular Volume 91.2 fl (85-98); Mean Platelet Volume 11.4 fL (7.4-10.4); Monocytes # 0.3 10^3/uL (0.2-0.9); Monocytes % 5.2 %; Neutrophils # 3.95 10^3/uL (1.8-7.7); Neutrophils % 64.2 %; Nucleated Red Blood Cells % 0 %; Platelet Count 256 10^3/cmm (157-399); Red Blood Count 4.79 10^6/uL (3.85-5.65); Red Cell Distribution Width 12.9 % (12.1-15.1); White Blood Count 6.15 10^3/uL (3.29-11.43)
[2024-08-04 14:26] LABS: Alanine Aminotransferase 10 U/L (0-33); Albumin Level 4.7 g/dL (3.5-5.2); Alkaline Phosphatase 56 U/L (35-105); Anion Gap 14.3 (5-19); Aspartate Amino Transferase 13 U/L (0-32); Blood Urea Nitrogen 15 mg/dL (6-20); Calcium 9.2 mg/dL (8.5-10.5); Carbon Dioxide 26 mmol/L (22-29); Chloride 103 mmol/L (98-107); Creatinine Clr Calc Pharmacy 109.4532; Globulin 2.5 g/dL (1.3-4.6); Glomerular Filtration Rate 84.8 mL/min (90-130); Glucose 78 mg/dL (65-115); Osmolality Calculated 288 mOsm/kg (285-295); Potassium 4.3 mmol/L (3.5-5.1); Sodium 139 mmol/L (136-145); Total Bilirubin 0.4 mg/dL (0.15-1.2); Total Protein 7.2 g/dL (6.6-8.7)
[2024-08-04 16:00] LABS: Bilirubin Urine Negative (Negative); Blood Urine Negative (Negative); Glucose Urine UA Negative (Normal); Ketones Urine Negative (Negative); Leukocyte Esterase Urine Negative (Negative); Nitrate Urine Negative (Negative); Protein Urine Negative (Negative); Urine Appearance Clear (CLEAR); Urine Color Yellow (Yellow); Urobilinogen Urine 0.2 mg/dL (Negative)
[2024-08-04 16:05] LABS: Add Urine Microscopic? YES; Bacteria Urine None Seen /hpf; Hyaline Casts Urine 0-4 /lpf; Squamous Epithelial Cell Urine 0-5 /hpf (0-5); WBC Urine 0-5 /hpf (0-5)
[2024-08-04] MEDS: ketorolac 30 mg/mL INJ IVP (16:07)
[2024-08-04] MEDS: orphenadrine 30 mg/mL Inj 2 mL 60 MG IM (16:08)
[2024-08-04] MEDS: dexamethasone 10 mg/mL INJ IM (16:12)
[2024-08-04 16:44] VITALS: BP 99/53; PULSE 54; O2SAT 100
== END 2024-08-04 16:45 | disposition home or self-care (01) ==
PROVIDERS: Emergency Provider Family Medicine; PCP Nurse Practitioner
DX: M54.16 Radiculopathy, lumbar region (principal)
CPT/HCPCS: 36415; 80053; 81001; 85025; 96372; 96374; 99284; J1100; J1885; J2360

== ENCOUNTER 2024-10-30 14:41 | Emergency (ER) | payer OTHER, SELFPAY ==
[2024-10-30 14:43] VITALS: BP 113/79; PULSE 79; RESP 14; TEMP 36.7; O2SAT 100; BMI 31.4
--- NOTE | 2024-10-30 14:47 | ECG_ITS ---
[facility] Date: 2024-10-30 Pat Name: May Parker Department: Room: Gender: Female Counselor/Art Therapist: : 1995 Requested By: Elisa Sawant Order Number: [id number] Barry MD: IRENE BATISTA Measurements Intervals [place] Rate: 78 P: 42 MA: 141 QRS: 47 QRSD: 86 T: 47 QT: 374 QTc: 428 Interpretive Statements SINUS RHYTHM WITH SINUS ARRHYTHMIA INDETERMINATE AXIS MODERATE T-WAVE ABNORMALITY, CONSIDER ANTERIOR ISCHEMIA [-0.1+ mV T-WAVE IN V3/V4] No previous ECG available for comparison Electronically Signed On 10-30-2024 23:32:58 POST ANESTHESIA ROOM NURSE by IRENE BATISTA [email or web address]
[2024-10-30 15:25] VITALS: BP 113/71; PULSE 83; RESP 16; O2SAT 100
[2024-10-30 15:30] VITALS: BP 113/71; PULSE 67; RESP 16; O2SAT 100
--- NOTE | 2024-10-30 15:39 | XRR_ITS ---
PROCEDURE INFORMATION: Exam: XR Chest Exam date and time: 10/30/2024 3:45 PM Age: 29 years old Clinical indication: Pain; Angina pectoris; Additional info: Chest pain TECHNIQUE: Imaging protocol: Radiologic exam of the chest. Views: 1 view. COMPARISON: CT abdomen pelvis w con* [id number] 05/29/2024 4:34 PM FINDINGS: Lungs: Unremarkable. No consolidation. Pleural spaces: Unremarkable. No pleural effusion. No pneumothorax. Heart/Mediastinum: Unremarkable. No cardiomegaly. Bones/joints: Unremarkable. XR/XR chest 1V portable [id number] IMPRESSION: No acute findings.
--- NOTE | 2024-10-30 15:39 | W.ED.CHESTPA ---
Documented by User: JULIA Valladares 10/30/24 16:25 HPI - Chest Pain General: Chief Complaint: Chest Pain Stated Complaint: chest pain, dizzy Time Seen by Provider: 10/30/24 14:44 Source: patient Mode of arrival: ambulatory Limitations: no limitations History of Present Illness: 29-year-old female presents to the ER complaining of chest pain. Patient states she has been having chest pain for the past week starting off with a dull and achy feeling that was present rarely. Over the past day or so chest pain has been constant in nature and more sharp. Located substernal. No obvious radiation although later states she feels like her left shoulder hurts. Patient states her appetite has decreased due to having a hard time swallowing when the chest pain arises. Patient denies palpitations, shortness of breath, abdominal pain. No alleviating or worsening factors to her discomfort. MD complaint: chest pain and chest discomfort Onset (ago): day(s) Timing of current episode: constant Prior episodes: No Onset: during rest Pain location: substernal Severity: moderate Pain scale (0-10): 7 Quality: aching, sharp and dull Relieving factors: nothing Exacerbating factors: nothing Associated symptoms: Deny abdominal pain, dyspnea, fever(s), nausea, palpitations, syncope or vomiting Treatment prior to arrival: none Risk Factors: Coronary artery disease risk factors: none Thoracic aortic dissection risk factors: none Related Data Home Medications ?Medication ?Instructions ?Recorded ?Confirmed cholecalciferol (vitamin D3) 25 25 mcg PO DAILY 10/30/24 10/30/24 mcg (1,000 unit) tablet (Vitamin D3) duloxetine 30 mg capsule,delayed 30 mg PO DAILY 10/30/24 10/30/24 release Allergies Allergy/AdvReac Type Severity Reaction Status Date / Time Penicillins Allergy ALGY-Anaphy Verified 10/30/24 14:42 laxis pineapple Allergy ALGY-Swell Verified 10/30/24 14:42 Lip/Tongue/Throat Review of Systems Const: Denies: fever(s), chills or body aches Eyes: Denies: change in vision or blurry vision ENMT: Reports: throat pain Card: Reports: chest pain and lightheadedness; Denies: palpitations, irregular heart rhythm, edema, swelling of feet/ankles, syncope, pre-syncope, dyspnea on exertion, orthopnea, leg pain with exertion or acrocyanosis Resp: Denies: dyspnea GI: Denies: abdominal pain, nausea or vomiting Musc: Denies: neck pain, back pain, extremity pain, extremity swelling, joint swelling or joint redness Skin/Breast: Denies: rash Neuro: Denies: headache(s), numbness in extremities or weakness in extremities PFS ED PFSH: Medical History Cavus deformity of left foot Metatarsalgia of left foot Physical Exam Const: COMMON NORMALS: no acute distress, average body habitus, patient oriented x3, no limitations, healthy appearing and well nourished GENERAL APPEARANCE: cooperative and comfortable ORIENTATION/CONSCIOUSNESS: Yes awake, Yes oriented to person, Yes oriented to place and Yes oriented to time Neck/C-Spine: COMMON NORMALS: no JVD Chest: COMMONS NORMALS: normal inspection of the chest and normal palpation of entire chest wall Resp: COMMON NORMALS: normal respiratory effort and clear to auscultation bilaterally EFFORT & INSPECTION: Yes able to speak in complete sentences AUSCULTATION: clear to auscultation bilaterally Cardio: COMMON NORMALS: no JVD, regular rate and regular rhythm RATE: regular rate RHYTHM: regular rhythm GI: COMMON NORMALS: Normal to inspection, nondistended, normoactive bowel sounds present, Soft to palpation, non-tender, No hepatosplenomegaly present and no masses INSPECTION: Yes normal to inspection PALPATION: Yes Soft to palpation and Yes No hepatosplenomegaly present : COMMON NORMALS: Yes no CVA tenderness BLADDER/KIDNEY EXAM: Yes no CVA tenderness Back/Pelvis: COMMON NORMALS: no CVA tenderness and thoracic and lumbar spine normal to inspection Extremity: GENERAL: Yes normal exam except as noted Neuro: COMMON NORMALS: patient oriented x3, moves all extremities, no focal motor deficits, no sensory deficits noted and gait normal SENSORIUM/ORIENTATION: Yes oriented to person, Yes oriented to place and Yes oriented to time Skin: COMMON NORMALS: no rashes or lesions noted GENERAL SKIN EXAM: no rashes or lesions noted Course Vital Signs: Vital signs: Vital Signs Temperature 98.0 F 10/30/24 14:43 Pulse Rate 72 10/30/24 16:00 Respiratory Rate 18 10/30/24 16:00 Blood Pressure 105/72 10/30/24 16:00 Pulse Oximetry 99 10/30/24 16:00 Oxygen Delivery Me thod Room Air 10/30/24 16:00 MDM - Chest Pain Lab Data 10/30/24 16:15 10/30/24 16:15 Radiology Impressions Chest X-Ray 10/30/24 15:39 IMPRESSION: No acute findings. Laboratory Results WBC 8.24 10^3/uL (3.29-11.43) 10/30/24 16:15 RBC 4.54 10^6/uL (3.85-5.65) 10/30/24 16:15 Hgb 13.40 g/dL (11.27-16.99) 10/30/24 16:15 Hct 41.6 % (36-47) 10/30/24 16:15 MCV 91.6 fl (85-98) 10/30/24 16:15 MCH 29.5 pg (27-33) 10/30/24 16:15 MCHC 32.2 g/dL (30-55) 10/30/24 16:15 RDW 13.2 % (12.1-15.1) 10/30/24 16:15 Plt Count 267 10^3/cmm (157-399) 10/30/24 16:15 MPV 10.8 fL (7.4-10.4) H 10/30/24 16:15 Neut % (Auto) 73.6 % 10/30/24 16:15 Lymph % (Auto) 17.7 % 10/30/24 16:15 [place] % (Auto) 6.6 % 10/30/24 16:15 Eos % (Auto) 1.3 % 10/30/24 16:15 Baso % (Auto) 0.6 % 10/30/24 16:15 Neut # (Auto) 6.06 10^3/uL (1.8-7.7) 10/30/24 16:15 Lymph # (Auto) 1.5 10^3/uL (0.8-4.8) 10/30/24 16:15 [place] # (Auto) 0.5 10^3/uL (0.2-0.9) 10/30/24 16:15 Eos # (Auto) 0.1 10^3/uL (0.0-0.8) 10/30/24 16:15 Baso # (Auto) 0.1 10^3/uL (0.0-0.1) 10/30/24 16:15 Nucleated RBC % (auto) 0 % 10/30/24 16:15 Nucleated RBCs # 0.0 /100WBC 10/30/24 16:15 D-Dimer <= 0.27 ug/mLFEU (0-0.59) 10/30/24 16:15 Sodium 138 mmol/L (136-145) 10/30/24 16:15 Potassium 4.2 mmol/L (3.5-5.1) 10/30/24 16:15 Chloride 106 mmol/L (98-107) 10/30/24 16:15 Carbon Dioxide 24 mmol/L (22-29) 10/30/24 16:15 Anion Gap 12.2 (5-19) 10/30/24 16:15 BUN 14 mg/dL (6-20) 10/30/24 16:15 Creatinine 0.7 mg/dL (0.5-0.9) 10/30/24 16:15 GFR Calculation 98.9 mL/min (90-130) 10/30/24 16:15 Glucose 82 mg/dL (65-115) 10/30/24 16:15 Calculated Osmolality 286 mOsm/kg (285-295) 10/30/24 16:15 Calcium 9.0 mg/dL (8.5-10.5) 10/30/24 16:15 Total Bilirubin 0.4 mg/dL (0.15-1.2) 10/30/24 16:15 AST 12 U/L (0-32) 10/30/24 16:15 ALT 10 U/L (0-33) 10/30/24 16:15 Alkaline Phosphatase 53 U/L (35-105) 10/30/24 16:15 Troponin T Baseline < 6 ng/L (0-10) 10/30/24 16:15 Total Protein 6.5 g/dL (6.6-8.7) L 10/30/24 16:15 Albumin 4.5 g/dL (3.5-5.2) 10/30/24 16:15 Globulin 2.0 g/dL (1.3-4.6) 10/30/24 16:15 Discharge Plan Discharge Patient Disposition: Home Clinical Impression: Chest pain, non-cardiac Condition: Stable Prescriptions: No Action duloxetine 30 mg capsule,delayed release(DR/EC) 30 mg PO DAILY cholecalciferol (vitamin D3) [Vitamin D3] 25 mcg (1,000 unit) Tablet 25 mcg PO DAILY Discharge Orders: Discharge ED (Routine); Ordered 10/30/24 Ordered By: Devon Barnes Referrals: Sonia Carbone FNP [Primary Care Provider] - Patient Instructions: Chest Pain - Noncardiac Activity Restrictions/Additional Instructions: Please follow-up with your regular doctor for further outpatient cardiac workup as we discussed. If you start to develop worsening chest pain, shortness of breath, or any other concerns please return for reevaluation. Please see the attached patient instructions for further education. Print Language: Norwegian Sign Out Sign Out Data: Patient Sign Out occurred on 10/30/24 at 17:12. Patient's care was discussed, and care was transferred from JULIA Valladares to JULIA Duncan. Coding Level of Care Code ED Travel Cota for Chg Fwd Documented by User: JULIA Duncan 10/30/24 18:05 HPI - Chest Pain General: Chief Complaint: Chest Pain Stated Complaint: chest pain, dizzy Time Seen by Provider: 10/30/24 14:44 Related Data Home Medications ?Medication ?Instructions ?Recorded ?Confirmed cholecalciferol (vitamin D3) 25 25 mcg PO DAILY 10/30/24 10/30/24 mcg (1,000 unit) tablet (Vitamin D3) duloxetine 30 mg capsule,delayed 30 mg PO DAILY 10/30/24 10/30/24 release Allergies Allergy/AdvReac Type Severity Reaction Status Date / Time Penicillins Allergy ALGY-Anaphy Verified 10/30/24 14:42 laxis pineapple Allergy ALGY-Swell Verified 10/30/24 14:42 Lip/Tongue/Throat [facility] ED PFSH: Medical History Cavus deformity of left foot Metatarsalgia of left foot Course Vital Signs: Vital signs: Vital Signs Temperature 98.0 F 10/30/24 14:43 Pulse Rate 72 10/30/24 16:00 Respiratory Rate 18 10/30/24 16:00 Blood Pressure 105/72 10/30/24 16:00 Pulse Oximetry 99 10/30/24 16:00 Oxygen Delivery Ri thod Room Air 10/30/24 16:00 MDM - Chest Pain Medical Decision Making Care of this patient transferred [place] by dayshift provider. Chest pain going on for about a week, I questioned the patient she stated that she has no concerning past family history in regards to early cardiac disease or sudden cardiac at an early age. She was given GI cocktail here and rechecked, stating that this did not help much. However with her workup, her EKG was reviewed with physician showing normal sinus rhythm with no acute STEMI or other life-threatening or concerning arrhythmias. Her baseline troponin was normal. D-dimer was obtained and negative, no need to pursue for CTA of chest for pulmonary embolus. Chest x-ray unremarkable. Physical exam unremarkable. Her vitals have all been within normal limits throughout the ED course. Rest of her lab work unremarkable. Heart score 0. I do not suspect cardiac etiology of the pain, however did encourage her to follow-up with her regular doctor for further outpatient management to include potential echocardiogram or stress testing. She agrees with this plan and is comfortable with discharging home, did give her return precautions to which she verbalized understanding. Lab Data 10/30/24 16:15 10/30/24 16:15 Radiology Impressions Chest X-Ray 10/30/24 15:39 IMPRESSION: No acute findings. Laboratory Results WBC 8.24 10^3/uL (3.29-11.43) 10/30/24 16:15 RBC 4.54 10^6/uL (3.85-5.65) 10/30/24 16:15 Hgb 13.40 g/dL (11.27-16.99) 10/30/24 16:15 Hct 41.6 % (36-47) 10/30/24 16:15 MCV 91.6 fl (85-98) 10/30/24 16:15 MCH 29.5 pg (27-33) 10/30/24 16:15 MCHC 32.2 g/dL (30-55) 10/30/24 16:15 RDW 13.2 % (12.1-15.1) 10/30/24 16:15 Plt Count 267 10^3/cmm (157-399) 10/30/24 16:15 MPV 10.8 fL (7.4-10.4) H 10/30/24 16:15 Neut % (Auto) 73.6 % 10/30/24 16:15 Lymph % (Auto) 17.7 % 10/30/24 16:15 [place] % (Auto) 6.6 % 10/30/24 16:15 Eos % (Auto) 1.3 % 10/30/24 16:15 Baso % (Auto) 0.6 % 10/30/24 16:15 Neut # (Auto) 6.06 10^3/uL (1.8-7.7) 10/30/24 16:15 Lymph # (Auto) 1.5 10^3/uL (0.8-4.8) 10/30/24 16:15 [place] # (Auto) 0.5 10^3/uL (0.2-0.9) 10/30/24 16:15 Eos # (Auto) 0.1 10^3/uL (0.0-0.8) 10/30/24 16:15 Baso # (Auto) 0.1 10^3/uL (0.0-0.1) 10/30/24 16:15 Nucleated RBC % (auto) 0 % 10/30/24 16:15 Nucleated RBCs # 0.0 /100WBC 10/30/24 16:15 D-Dimer <= 0.27 ug/mLFEU (0-0.59) 10/30/24 16:15 Sodium 138 mmol/L (136-145) 10/30/24 16:15 Potassium 4.2 mmol/L (3.5-5.1) 10/30/24 16:15 Chloride 106 mmol/L (98-107) 10/30/24 16:15 Carbon Dioxide 24 mmol/L (22-29) 10/30/24 16:15 Anion Gap 12.2 (5-19) 10/30/24 16:15 BUN 14 mg/dL (6-20) 10/30/24 16:15 Creatinine 0.7 mg/dL (0.5-0.9) 10/30/24 16:15 GFR Calculation 98.9 mL/min (90-130) 10/30/24 16:15 Glucose 82 mg/dL (65-115) 10/30/24 16:15 Calculated Osmolality 286 mOsm/kg (285-295) 10/30/24 16:15 Calcium 9.0 mg/dL (8.5-10.5) 10/30/24 16:15 Total Bilirubin 0.4 mg/dL (0.15-1.2) 10/30/24 16:15 AST 12 U/L (0-32) 10/30/24 16:15 ALT 10 U/L (0-33) 10/30/24 16:15 Alkaline Phosphatase 53 U/L (35-105) 10/30/24 16:15 Troponin T Baseline < 6 ng/L (0-10) 10/30/24 16:15 Total Protein 6.5 g/dL (6.6-8.7) L 10/30/24 16:15 Albumin 4.5 g/dL (3.5-5.2) 10/30/24 16:15 Globulin 2.0 g/dL (1.3-4.6) 10/30/24 16:15 All radiology interpretation(s) finalized by discharge Discharge Plan Discharge Patient Disposition: Home Clinical Impression: Chest pain, non-cardiac Condition: Stable Prescriptions: No Action duloxetine 30 mg capsule,delayed release(DR/EC) 30 mg PO DAILY cholecalciferol (vitamin D3) [Vitamin D3] 25 mcg (1,000 unit) Tablet 25 mcg PO DAILY Discharge Orders: Discharge ED (Routine); Ordered 10/30/24 Ordered By: Devon Barnes Referrals: Sonia Carbone FNP [Primary Care Provider] - Patient Instructions: Chest Pain - Noncardiac Activity Restrictions/Additional Instructions: Please follow-up with your regular doctor for further outpatient cardiac workup as we discussed. If you start to develop worsening chest pain, shortness of breath, or any other concerns please return for reevaluation. Please see the attached patient instructions for further education. Print Language: Norwegian Sign Out Sign Out Data: Patient Sign Out occurred on 10/30/24 at 17:12. Patient's care was discussed, and care was transferred from JULIA Valladares to JULIA Duncan. Coding Level of Care Code ED Travel Cota for Damien Lu
[2024-10-30 16:00] VITALS: BP 105/72; PULSE 72; RESP 18; O2SAT 99
[2024-10-30 16:29] LABS: Basophils # 0.1 10^3/uL (0.0-0.1); Basophils % 0.6 %; Eosinophils # 0.1 10^3/uL (0.0-0.8); Eosinophils % 1.3 %; Hematocrit 41.6 % (36-47); Lymphocytes # 1.5 10^3/uL (0.8-4.8); Lymphocytes % 17.7 %; Mean Corpuscular HGB Conc 32.2 g/dL (30-55); Mean Corpuscular Hemoglobin 29.5 pg (27-33); Mean Corpuscular Volume 91.6 fl (85-98); Mean Platelet Volume 10.8 fL (7.4-10.4); Monocytes # 0.5 10^3/uL (0.2-0.9); Monocytes % 6.6 %; Neutrophils # 6.06 10^3/uL (1.8-7.7); Neutrophils % 73.6 %; Nucleated Red Blood Cells % 0 %; Platelet Count 267 10^3/cmm (157-399); Red Blood Count 4.54 10^6/uL (3.85-5.65); Red Cell Distribution Width 13.2 % (12.1-15.1); White Blood Count 8.24 10^3/uL (3.29-11.43)
[2024-10-30] MEDS: lidocaine 2% viscous 15 ML, aluminum-mag hydrox-simethicon 30 ML, sucralfate oral liq 1 GM PO (16:35)
[2024-10-30 16:49] LABS: Alanine Aminotransferase 10 U/L (0-33); Albumin Level 4.5 g/dL (3.5-5.2); Alkaline Phosphatase 53 U/L (35-105); Anion Gap 12.2 (5-19); Aspartate Amino Transferase 12 U/L (0-32); Blood Urea Nitrogen 14 mg/dL (6-20); Carbon Dioxide 24 mmol/L (22-29); Chloride 106 mmol/L (98-107); Creatinine Clr Calc Pharmacy 123.5963; Glomerular Filtration Rate 98.9 mL/min (90-130); Glucose 82 mg/dL (65-115); Osmolality Calculated 286 mOsm/kg (285-295); Potassium 4.2 mmol/L (3.5-5.1); Sodium 138 mmol/L (136-145); Total Bilirubin 0.4 mg/dL (0.15-1.2); Total Protein 6.5 g/dL (6.6-8.7)
[2024-10-30 17:03] LABS: Troponin(5th) Baseline < 6 ng/L (0-10)
[2024-10-30 17:26] LABS: D Dimer <= 0.27 ug/mLFEU (0-0.59)
--- NOTE | 2024-10-30 17:44 | ECG_ITS ---
[facility] Test Date: 2024-10-30 Pat Name: May Parker Department: Room: Gender: Female Stonecutter Hand: : 1995 Requested By: Elisa Sawant Order Number: [id number] Barry MD: IRENE BATISTA Measurements Intervals [place] Rate: 67 P: 50 [place]: 157 QRS: 68 QRSD: 85 T: 42 QT: 388 QTc: 412 Interpretive Statements SINUS RHYTHM LOW QRS VOLTAGE IN PRECORDIAL LEADS [QRS DEFLECTION < 1.0 mV IN CHEST LEADS] POSSIBLE RIGHT VENTRICULAR CONDUCTION DELAY [RSR (QR) IN V1/V2] Compared to ECG 10/30/2024 14:47:59 Low QRS voltage now present Sinus arrhythmia no longer present Indeterminate axis no longer present T-wave abnormality no longer present Possible ischemia no longer present Electronically Signed On 10-30-2024 23:45:09 [employer] WINDING SUPERVISOR by IRENE BATISTA [email or web address]
[2024-10-30 18:00] VITALS: BP 109/73; PULSE 70; O2SAT 98
[2024-10-30 18:10] VITALS: BP 108/63; PULSE 71; O2SAT 99
== END 2024-10-30 18:11 | disposition home or self-care (01) ==
PROVIDERS: Physician Assistant; Emergency Provider Physician Assistant; PCP Nurse Practitioner
DX: R07.89 Other chest pain (principal)
CPT/HCPCS: 71045; 80053; 84484; 85025; 85378; 93005; 99285

== ENCOUNTER 2025-08-16 16:19 | Emergency (ER) | payer OTHER, SELFPAY ==
[2025-08-16 16:22] VITALS: BP 95/51; PULSE 75; RESP 15; TEMP 36.7; O2SAT 98; BMI 30.1
--- OUTSIDE RECORDS SUMMARY | 2025-08-16 16:24 | XMS_ITS | Patient Health Record ---
Author Organization [facility] Address [address] [address] [place] [address] Care Team Providers Care Concession Attendant Name Role Phone Sacha Rossana, Medical Primary Care Provider Brynn Barbosa PA-C, Luke Unavailable [phone] Allergies Allergen (clinical drug ingredient) Drug/Non Drug Allergy documented on EMR Reaction Allergy Type Onset Date Status Penicillin (For Allergies Use Only) Rash Drug Allergy Active Reason For Referral No Information Social History Tobacco Use: Social History Observation Description Date Details (start date - stop date) Never Smoker NA - NA Social History General Social Info Question Answer Notes Learning Barriers / Special Needs Barriers to Learning ? No Hearing Impaired? No Vision Impaired? No Cognitively Impaired? No Readiness to Learn? Yes Learning Preferences? No Learning Capabilities Present? Yes Emotional Barriers? No Special Devices? No Linen Worker Needed? No Tobacco Use: Are you a: nonsmoker Problems Problem Type SNOMED Code ICD Code Onset Dates Problem Status W/U Status Risk Notes Problem Chronic fatigue syndrome (84837037) Chronic fatigue (R53.82) Active confirmed Plan Of Treatment No Information Insurance Providers Payer Name Payer Address Payer Phone Subscriber Number Group Number Insured Name Patient Relationship to Insured Coverage Start Date Coverage End Date INACTIVE CHANGE TO [facility] [address] [place] [address] [phone] [id number] KAREN 18 SELF / SAME PATIENT
--- OUTSIDE RECORDS SUMMARY | 2025-08-16 16:24 | XMS_ITS | Data Portability ---
Author Organization [facility] Bobby Yao [facility] Address [address] [address] Assessment No assessment recorded. Plan of Treatment Reminders Order Date Submit Date Provider Last Modified By Organization Details Last Modified Time Details Appointments None recorded. Lab None recorded. Referral None recorded. Procedures None recorded. Surgeries None recorded. Imaging None recorded. Medication Orders azithromyci n 250 mg tablet 2024 025 [facility] #[id number], [address], [place], [place], [id number], 18:11:54 benzonatate 200 mg capsule 2024 025 [facility] #[id number], [address], [place], [place], [id number], 18:11:52 albuterol sulfate HFA 90 mcg/actuati on aerosol inhaler 2024 025 [facility] #[id number], [address], [place], [place], [id number], 18:11:53 Zepbound 5 mg/0.5 mL subcutaneou s pen injector 2024 025 [facility] #[id number], [address], [place], [place], [phone], 10:18:32 Patient TargetsNo targets recorded. Patient InstructionsNo instructions recorded. Reason for Referral None Reported. Problems Name Problem SNOMED Code Status Onset Date Resolution Date Notes Provider Name and Address Organization Details Recorded Time Obesity 073713328 Active 2024 Ruperto Garrison MD [address] [place] [address], [phone], [facility] 12:13:36 Dysfunction of eustachian tube 11566172 Active 2024 Ruperto Garrison MD [address] [place] [address], [phone], [facility] 10:16:17 Acute bronchitis with bronchospasm 43860149 Active 2024 Ruperto Garrison MD [address] [place] [address], [phone], [facility] 18:10:30 Problem Notes None recorded. Procedures Surgical History Date Name Laterality Status Provider Name and Address Organization Details Recorded Time Caesarean Section completed Erika Tinoco [facility] 09/11/2024 11:59:43 Imaging Results None recorded. Procedure Notes None recorded. Medical Equipment None Reported. Allergies Allergen ID Allergen Name Allergen Category Reaction Reaction Severity Criticality Documentation Date Start Date Code Code System Note Provider Name and Address Organization Details Recorded Time 34849 Product containin g penicilli n (product) medicatio n Not available Not available Not available 09/11/2024 [id number] 8001 SNOMED Erika Tinoco [facility] 11:55:04 Medications Name Sig Start Date Stop Date Status Note LastModified by Organization Details LastModified Time cyclobenzap rine 10 mg tablet TAKE 1 TABLET BY MOUTH EVERY 8 HOURS NEEDED FOR MUSCLE SPASMS active Not Available Not Available No t Available azithromyci n 250 mg tablet TK 2 TS PO ON DAY 1, THEN TK 1 T PO D FOR 4 DAYS active Not Available Not Available No t Available tizanidine 4 mg tablet TAKE 1 TABLET BY MOUTH EVERY 6 HOURS NEEDED FOR MUSCLE SPASMS. DO NOT EXCEED 3 DOSES PER 24 HOURS 09/11 completed Not Available Not Available Not Available fluconazole 150 mg tablet TAKE 1 TABLET BY MOUTH TODAY , REPEAT ON DAY 5. 09/11 completed Not Available Not Available Not Available benzonatate 200 mg capsule TAKE 1 CAPSULE BY MOUTH THREE TIMES DAILY active Not Available Not Available No t Available hydrocodone 5 mg-acetamin ophen 325 mg tablet TAKE 1 TABLET BY MOUTH EVERY 4 HOURS NEEDED FOR ACUTE PAIN active Not Available Not Available No t Available prochlorper azine maleate 5 mg tablet active Not Available Not Available No t Available prednisone 20 mg tablet TAKE 1 TABLET BY MOUTH THREE TIMES DAILY FOR 3 DAYS THEN TAKE 1 TABLET BY MOUTH TWICE DAILY FOR 2 DAYS THEN TAKE 1 TABLET BY MOUTH DAILY FOR 2 DAYS 09/11 completed Not Available Not Available Not Available rizatriptan 10 mg tablet active Not Available Not Available Not Available sulfamethox azole 800 mg-trimetho prim 160 mg tablet TAKE 1 TABLET BY MOUTH TWICE DAILY FOR 5 DAYS 09/11 completed Not Available Not Available Not Available oxycodone-a cetaminophe n 5 mg-325 mg tablet TAKE 1 TABLET BY MOUTH EVERY 8 HOURS NEEDED FOR MODERATE PAIN . DO NOT EXCEED 3 PER 24 HOURS 09/11 completed Not Available Not Available Not Available trazodone 100 mg tablet 09/11 completed Not Available Not Available Not Available diclofenac sodium 75 mg tablet,jazmyn yed release TAKE 1 TABLET BY MOUTH EVERY 12 HOURS NEEDED FOR PAIN 09/11 completed Not Available Not Available Not Available hydroxyzine HCl 25 mg tablet TAKE 1 TABLET BY MOUTH TWICE DAILY NEEDED FOR ANXIETY 09/11 completed Not Available Not Available Not Available albuterol sulfate HFA 90 mcg/actuati on aerosol inhaler INHALE 2 PUFFS BY MOUTH EVERY 4 HOURS active Not Available Not Available No t Available naproxen 500 mg tablet TAKE 1 TABLET BY MOUTH EVERY 12 HOURS active Not Available Not Available No t Available tobramycin 0.3 %-dexametha sone 0.1 % eye drops,suspe nsion INSTILL 1 DROP INTO EACH EYE EVERY 4 HOURS FOR 7 DAYS 09/11 completed Not Available Not Available Not Available cyclobenzap rine 5 mg tablet 09/11 completed Not Available Not Available Not Available duloxetine 30 mg capsule,del ayed release active Not Available Not Available Not Available cholecalcif eliazar (vitamin D3) 25 mcg (1,000 unit) tablet active Not Available Not Available Not Available Zepbound 5 mg/0.5 mL subcutaneou s pen injector ADMINISTE R 5 MG UNDER THE SKIN EVERY WEEK active Not Available Not Available No t Available Zepbound 2.5 mg/0.5 mL subcutaneou s pen injector INJECT 5MG SUBCUTANE OUSLY EVERY WEEK active Not Available Not Available No t Available Vitals Date Recorded Body height Body mass index (BMI) Body weight Oxygen saturation Heart rate Respiratory rate Body temperature Systolic And Diastolic Provider Name and Address Organization Details Last Updated DateTime 5 160.02 cm 34.9 kg/m2 34698.7 g 98 % 91 /min 18 /min 97.5 [degF] 120/78 mm[Hg] Erika Tinoco [facility] 5 11:54:12 Date Recorded Body height Body mass index (BMI) Body weight Oxygen saturation Heart rate Body temperature Systolic And Diastolic Provider Name and Address Organization Details Last Updated DateTime 5 160.02 cm 31.7 kg/m2 14966.0 3 g 99 % 77 /min 97.7 [degF] 116/80 mm[Hg] Estelita Rosenthal [facility] 5 18:00:08 Social History None recorded. Functional Status Question Answer Note LastModified by Organizat ion Details LastModified Time Do you use any illicit or recreational drugs? No [email or web address] Information not available 09/11/2024 What is your level of alcohol consumption? None [email or web address] Information not available 09/11/2024 Mental Status None recorded. Family History Nothing Reported Notes:mom has MS, Dad had a stroke, both grandmothers had breast cancer Medical History Condition Response Headaches Y Gynecological HistoryNo gynecological history recorded. Obstetrics History GPAL:G 0 P 0 0 0 0 Past Encounters Encounter ID Performer Location Encounter Start Date Encounter Closed Date Diagnosis/Indication Diagnosis SNOMED-CT Code Diagnosis ICD10 Code Diagnosis IMO Codes Diagnosis Note [id number] Ruperto Garrison MD [facility] ([facility]) [address] [place] [phone] 09/11/2024 11:41:46 09/11/2024 13:17:09 Obesity 413378807 E66.9 Discussed GLP-1's and their role in weight loss. Patient is interested in continuing the medication . The patient has done compounded tirzepatid e, but would prefer to utilize insurance and known medication prescribed by a physician. Encouraged patient to continue to work on diet and exercise. We will attempt. We will proceed with 5 mg Zepbound as she has been taking 2.5 mg weekly already. Dysfunctio n of eustachian tube 67360000 H69.93 Patient's history and exam are suggestive of eustachian tube dysfunctio n. Encouraged the patient to go ahead and start steroids as this will likely help. [id number] Ruperto Garrison MD [facility] ([facility]) [address] [place] [address] 12/06/2024 17:50:25 12/10/2024 10:47:57 Acute bronchitis with bronchospasm 07780185 J20.9 Start treatment with antibiotic s and albuterol as needed. Will provide Tessalon Perles to help with cough. Encouraged the patient to push fluids. Health Concerns Section Related Observation LastModified by Organization Detai ls LastModified Time None Recorded Concern Status LastModified by Organization Details LastModified Time None Recorded Advance Directives Directive None Recorded Payers Insurance Date Sequence Insurance Name Policy Number Policy Delaney Covered Member ID Delaney Member ID Guarantor Name 09/26/2024 1 *SELF PAY* Arlene urrutia Vice 09/26/2024 1 FOR LIFE () [employer] [id number] May Vice 12/06/2024 1 [employer] ( - PPO) [employer] [id number] [employer] Notes Date Note Type Note Provider Name and Address Organization Details Recorded Time 09/11/2024 text/html Annual WellnessReported by Patient This is a 29-year-old female comes in today to establish care. Patient reports that she has been having some issues with bilateral ear pain. The patient was recently prescribed steroids but has not started that medication. Patient states that he has pain and pressure. Patient's primary interest in today is tirzepatide for weight loss. Ruperto Garrison MD [address] [place] [address], [phone], [facility] 09/13/2024 10:19:23 12/06/2024 text/html ROS as noted in the HPI walk inx 2 weeks cough, burning in chest. Patient has reported some increased productive cough and mild shortness of breath. Ruperto Garrison MD [address] [place] [address], [phone], [facility] 12/09/2024 10:57:24 OBGyn Episode No OBEpisode recorded.
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
--- NOTE | 2025-08-16 16:33 | ECG_ITS ---
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1995 Requested By: Shruthi Ferreira Order Number: [id number] Barry MD: IRENE BATISTA Measurements Intervals [place] Rate: 79 P: 49 DE: 142 QRS: 47 QRSD: 86 T: 20 QT: 347 QTc: 399 Interpretive Statements SINUS RHYTHM WITH SINUS ARRHYTHMIA INDETERMINATE AXIS POSSIBLE RIGHT VENTRICULAR CONDUCTION DELAY [RSR (QR) IN V1/V2] NONSPECIFIC T-WAVE ABNORMALITY Compared to ECG 10/30/2024 17:44:42 Indeterminate axis now present T-wave abnormality now present Electronically Signed On 08-16-2025 18:28:33 RIB CHOPPER by IRENE BATISTA [email or web address]
--- NOTE | 2025-08-16 16:42 | XRR_ITS ---
PROCEDURE INFORMATION: Exam: XR Chest Exam date and time: 08/16/2025 4:55 PM Age: 30 years old Clinical indication: Pain; Angina pectoris; Additional info: Chest pain TECHNIQUE: Imaging protocol: Radiologic exam of the chest. Views: 1 view. COMPARISON: CR XR chest 1V portable [id number] 10/30/2024 3:45 PM FINDINGS: Lungs: Unremarkable. No consolidation. Pleural spaces: Unremarkable. No pleural effusion. No pneumothorax. Heart/Mediastinum: Unremarkable. No cardiomegaly. Bones/joints: Mild right convexity thoracic scoliosis. Upper abdomen: Unremarkable. XR/XR chest 1V portable [id number] IMPRESSION: No acute findings.
--- NOTE | 2025-08-16 16:50 | W.ED.CHESTPA ---
HPI - Chest Pain General: Chief Complaint: Chest Pain Stated Complaint: chest pain Time Seen by Provider: 08/16/25 16:42 Source: patient Mode of arrival: ambulatory Limitations: no limitations History of Present Illness: Patient is a 30-year-old female with no known cardiac or pulmonary history [facility]. Patient states she has had chest pain for a few days. She does have a history of chest pains that have been benign in the past. She also was reportedly tender to her right upper quadrant while at the [facility] so they also sent her here for rule out gallbladder . Patient states she intermittently will notice some mild right sided abdominal pains but they do not really seem to bother her. Patient states she was not really tender until the provider pushed on her abdomen. Patient appears in no acute distress. Vital signs are stable. She is not having any nausea, vomiting, changes in bowel movements. She is not having any urinary symptoms. No back or flank pain. Denies shortness of breath or difficulty breathing. No recent URI-like symptoms. MD complaint: chest pain Onset (ago): day(s) Timing of current episode: episodic Prior episodes: Yes Pain location: substernal Pain radiation: none Severity: mild Quality: tightness and heaviness Relieving factors: nothing Exacerbating factors: nothing Associated symptoms: Reports abdominal pain; Deny dyspnea, fever(s), nausea, palpitations, syncope or vomiting Treatment prior to arrival: none Risk Factors: Coronary artery disease risk factors: none Thoracic aortic dissection risk factors: none Related Data Home Medications ?Medication ?Instructions ?Recorded ?Confirmed cholecalciferol (vitamin D3) 25 25 mcg PO DAILY 10/30/24 10/30/24 mcg (1,000 unit) tablet (Vitamin D3) duloxetine 30 mg capsule,delayed 30 mg PO DAILY 10/30/24 10/30/24 release Allergies Allergy/AdvReac Type Severity Reaction Status Date / Time Penicillins Allergy ALGY-Anaphy Verified 08/16/25 16:28 laxis pineapple Allergy ALGY-Swell Verified 08/16/25 16:28 Lip/Tongue/Throat Review of Systems Const: Denies: fever(s), chills, body aches, fatigue or malaise Card: Reports: chest pain; Denies: palpitations, irregular heart rhythm, edema, swelling of feet/ankles, lightheadedness, syncope, pre-syncope, dyspnea on exertion, orthopnea, leg pain with exertion or acrocyanosis Resp: Denies: dyspnea, pain on inspiration or chest congestion GI: Reports: abdominal pain; Denies: nausea, vomiting or diarrhea : Denies: flank pain, difficulty voiding, dysuria, urinary frequency, urinary urgency or urinary hesitancy Musc: Denies: neck pain, back pain, extremity pain, extremity swelling, joint pain, joint swelling or joint redness Skin/Breast: Denies: rash Neuro: Denies: headache(s), numbness in extremities, weakness in extremities, sensory changes or dizziness PFS ED PFSH: Medical History (Updated 08/16/25 @ 18:51 by JULIA Valladares) Cavus deformity of left foot Metatarsalgia of left foot Female Reproductive History: Date of last menstrual period: 07/30/25 Physical Exam Const: COMMON NORMALS: no acute distress, average body habitus, patient oriented x3, no limitations, healthy appearing, alert and well nourished GENERAL APPEARANCE: cooperative Chest: COMMONS NORMALS: normal inspection of the chest and normal palpation of entire chest wall Resp: COMMON NORMALS: normal respiratory effort and clear to auscultation bilaterally AUSCULTATION: clear to auscultation bilaterally Cardio: COMMON NORMALS: regular rate and regular rhythm RATE: regular rate RHYTHM: regular rhythm GI: COMMON NORMALS: Normal to inspection, nondistended, normoactive bowel sounds present, Soft to palpation, No hepatosplenomegaly present and no masses INSPECTION: Yes normal to inspection AUSCULTATION: Yes normoactive bowel sounds PALPATION: Yes Soft to palpation, Yes Tenderness to palpation present (GI) (mild RUQ pain; non-surgical examination), No Guarding due to palpation present (GI), No Rigid due to palpation and Yes No hepatosplenomegaly present : COMMON NORMALS: Yes no CVA tenderness BLADDER/KIDNEY EXAM: Yes no CVA tenderness Back/Pelvis: COMMON NORMALS: no CVA tenderness and thoracic and lumbar spine normal to inspection Extremity: COMMON NORMALS: normal to inspection GENERAL: Yes normal exam except as noted Neuro: COMMON NORMALS: patient oriented x3, moves all extremities, no focal motor deficits, no sensory deficits noted and gait normal SENSORIUM/ORIENTATION: Yes alert Skin: COMMON NORMALS: no rashes or lesions noted GENERAL SKIN EXAM: no rashes or lesions noted Course Vital Signs: Vital signs: Vital Signs Temperature 98.1 F 08/16/25 16:22 Pulse Rate 78 08/16/25 18:30 Respiratory Rate 15 08/16/25 16:22 Blood Pressure 104/66 08/16/25 18:00 Pulse Oximetry 96 08/16/25 18:30 Oxygen Delivery Me thod Room Air 08/16/25 18:30 MDM - Chest Pain Medical Decision Making Patient is a 30-year-old female here sent from the [place] for complaints of chest pain as well as right upper quadrant abdominal pain. She was reportedly told to come here to make sure my gallbladder was okay . Patient clinically appears in no acute distress. Vital signs are stable. Blood work is unremarkable with a normal white count. Normal chemistry including LFTs, t. bili, lipase. Patient had a nonischemic EKG and a normal baseline troponin. CXR is unremarkable. US gallbladder obtained and unremarkable. At this time patient will be allowed discharge from the emergency department with recommendations to follow-up with primary care next week if symptoms persist. Return ED precautions given. Medical Records I reviewed the patient's medical records. Lab Data I reviewed the patient's lab results. 08/16/25 16:35 08/16/25 16:35 Radiology Impressions Chest X-Ray 08/16/25 16:42 IMPRESSION: No acute findings. Laboratory Results WBC 6.85 10^3/uL (3.29-11.43) 08/16/25 16:35 RBC 4.42 10^6/uL (3.85-5.65) 08/16/25 16:35 Hgb 13.20 g/dL (11.27-16.99) 08/16/25 16:35 Hct 39.7 % (36-47) 08/16/25 16:35 MCV 89.8 fl (85-98) 08/16/25 16:35 MCH 29.9 pg (27-33) 08/16/25 16:35 MCHC 33.2 g/dL (30-55) 08/16/25 16:35 RDW 12.8 % (12.1-15.1) 08/16/25 16:35 Plt Count 267 10^3/cmm (157-399) 08/16/25 16:35 MPV 11.0 fL (7.4-10.4) H 08/16/25 16:35 Neut % (Auto) 67.4 % 08/16/25 16:35 Lymph % (Auto) 22.3 % 08/16/25 16:35 [place] % (Auto) 6.6 % 08/16/25 16:35 Eos % (Auto) 2.8 % 08/16/25 16:35 Baso % (Auto) 0.6 % 08/16/25 16:35 Neut # (Auto) 4.62 10^3/uL (1.8-7.7) 08/16/25 16:35 Lymph # (Auto) 1.5 10^3/uL (0.8-4.8) 08/16/25 16:35 [place] # (Auto) 0.5 10^3/uL (0.2-0.9) 08/16/25 16:35 Eos # (Auto) 0.2 10^3/uL (0.0-0.8) 08/16/25 16:35 Baso # (Auto) 0.0 10^3/uL (0.0-0.1) 08/16/25 16:35 Nucleated RBC % (auto) 0 % 08/16/25 16:35 Nucleated RBCs # 0.0 /100WBC 08/16/25 16:35 Sodium 139 mmol/L (136-145) 08/16/25 16:35 Potassium 3.9 mmol/L (3.5-5.1) 08/16/25 16:35 Chloride 103 mmol/L (98-107) 08/16/25 16:35 Carbon Dioxide 26 mmol/L (22-29) 08/16/25 16:35 Anion Gap 13.9 (5-19) 08/16/25 16:35 BUN 14 mg/dL (6-20) 08/16/25 16:35 Creatinine 0.7 mg/dL (0.5-0.9) 08/16/25 16:35 GFR Calculation 98.3 mL/min (90-130) 08/16/25 16:35 Glucose 88 mg/dL (65-115) 08/16/25 16:35 Calculated Osmolality 288 mOsm/kg (285-295) 08/16/25 16:35 Calcium 9.4 mg/dL (8.5-10.5) 08/16/25 16:35 Total Bilirubin 0.4 mg/dL (0.15-1.2) 08/16/25 16:35 AST 14 U/L (0-32) 08/16/25 16:35 ALT 11 U/L (0-33) 08/16/25 16:35 Alkaline Phosphatase 57 U/L (35-105) 08/16/25 16:35 Troponin T Baseline < 6 ng/L (0-10) 08/16/25 16:35 Total Protein 6.9 g/dL (6.6-8.7) 08/16/25 16:35 Albumin 4.5 g/dL (3.5-5.2) 08/16/25 16:35 Globulin 2.4 g/dL (1.3-4.6) 08/16/25 16:35 HCG, Qual Negative (Negative) 08/16/25 16:35 All radiology interpretation(s) finalized by discharge Discharge Plan Discharge Patient Disposition: Home Clinical Impression: Non-cardiac chest pain Abdominal pain Qualifiers: Abdominal location: right upper quadrant Qualified Code(s): R10.11 - Right upper quadrant pain Condition: Stable Prescriptions: No Action duloxetine 30 mg capsule,delayed release(DR/EC) 30 mg PO DAILY cholecalciferol (vitamin D3) [Vitamin D3] 25 mcg (1,000 unit) Tablet 25 mcg PO DAILY Discharge Orders: Discharge ED (Routine); Ordered 08/16/25 Ordered By: Elisa Sawant Referrals: Sonia Carbone FNP [Primary Care Provider, Nurse Practitioner] Patient Instructions: Chest Pain - Noncardiac, Abdominal Pain (ED), Patient Portal & Jennifer Instructions Activity Restrictions/Additional Instructions: As we discussed, cardiac workup here was unremarkable. Chemistry including liver enzymes as well as a gallbladder ultrasound was unremarkable. Please follow-up with primary care in the next 1 to 2 weeks if symptoms persist. He may return to the emergency department at anytime for any further concerns you may have. I hope you begin to feel better soon. Print Language: Eritrean Coding Level of Care Code ED Casino Investigator for Arlenethom Fwjad Heart Score HEART Score Components History: Slightly Suspicous EKG: Normal Age: Less than 45 yrs Risk Factors: No Risk Factors Known Troponin: Baseline Trop <16 ng/L HEART Score RESULT HEART Score: 0
--- NOTE | 2025-08-16 16:52 | ECG_ITS ---
[facility] Test Date: 2025-08-16 Pat Name: May Parker Department: Room: Gender: Female Corporate Travel Coordinator: : 1995 Requested By: Elisa Sawant Order Number: [id number] Barry MD: IRENE BATISTA Measurements Intervals [place] Rate: 80 P: 55 PA: 139 QRS: 28 QRSD: 90 T: 27 QT: 355 QTc: 410 Interpretive Statements SINUS RHYTHM POSSIBLE RIGHT VENTRICULAR CONDUCTION DELAY [RSR (QR) IN V1/V2] NONSPECIFIC T-WAVE ABNORMALITY Compared to ECG 08/16/2025 16:33:04 Sinus arrhythmia no longer present Indeterminate axis no longer present T-wave abnormality still present Electronically Signed On 08-16-2025 18:28:31 FLIGHT TEST ENGINEER by IRENE BATISTA [email or web address]
[2025-08-16 17:03] VITALS: BP 112/77; PULSE 74; O2SAT 99
[2025-08-16 17:13] LABS: Hematocrit 39.7 % (36-47); Hemoglobin 13.20 g/dL (11.27-16.99); Mean Corpuscular HGB Conc 33.2 g/dL (30-55); Mean Corpuscular Hemoglobin 29.9 pg (27-33); Mean Corpuscular Volume 89.8 fl (85-98); Nucleated Red Blood Cells % 0 %; Platelet Count 267 10^3/cmm (157-399); Red Blood Count 4.42 10^6/uL (3.85-5.65); White Blood Count 6.85 10^3/uL (3.29-11.43)
[2025-08-16 17:25] LABS: HCG, Serum Qual Negative (Negative)
[2025-08-16 17:30] VITALS: BP 104/66; PULSE 78; O2SAT 100
[2025-08-16 17:32] LABS: Alanine Aminotransferase 11 U/L (0-33); Albumin Level 4.5 g/dL (3.5-5.2); Alkaline Phosphatase 57 U/L (35-105); Anion Gap 13.9 (5-19); Aspartate Amino Transferase 14 U/L (0-32); Blood Urea Nitrogen 14 mg/dL (6-20); Calcium 9.4 mg/dL (8.5-10.5); Carbon Dioxide 26 mmol/L (22-29); Chloride 103 mmol/L (98-107); Globulin 2.4 g/dL (1.3-4.6); Glucose 88 mg/dL (65-115); Osmolality Calculated 288 mOsm/kg (285-295); Potassium 3.9 mmol/L (3.5-5.1); Sodium 139 mmol/L (136-145); Total Protein 6.9 g/dL (6.6-8.7)
[2025-08-16 17:34] LABS: Troponin(5th) Baseline < 6 ng/L (0-10)
--- NOTE | 2025-08-16 17:41 | USR_ITS ---
PROCEDURE INFORMATION: Exam: US Abdomen, Limited; Right Upper Quadrant Exam date and time: 08/16/2025 6:43 PM Age: 30 years old Clinical indication: Abdominal pain; Additional info: Ruq pain TECHNIQUE: Imaging protocol: Real time ultrasound of the abdomen with image documentation. Limited exam focused on the right upper quadrant. COMPARISON: CT abdomen pelvis w con* [id number] 05/29/2024 4:34 PM FINDINGS: Liver: Normal. No masses. Gallbladder: Normal. No gallstones. There is no gallbladder wall thickening. Biliary ducts: Normal. No stones. No dilation. Pancreas: Visualized pancreas is unremarkable. Right kidney: Normal. No mass. No hydronephrosis. US/US gall bladder [id number] IMPRESSION: No acute findings.
--- NOTE | 2025-08-16 17:43 | ECG_ITS ---
[facility] Date: 2025-08-16 Pat Name: May Parker Department: Room: Gender: Female Feed Preparation Operator: : 1995 Requested By: Elisa Sawant Order Number: [id number] Reddy MD: IRENE BATISTA Measurements Intervals [place] Rate: 68 P: 60 [place]: 165 QRS: 54 QRSD: 83 T: 58 QT: 382 QTc: 407 Interpretive Statements SINUS RHYTHM POSSIBLE RIGHT VENTRICULAR CONDUCTION DELAY [RSR (QR) IN V1/V2] SEPTAL MYOCARDIAL INFARCTION , OF INDETERMINATE AGE [40+ ms Q WAVE IN V1/V2] Compared to ECG 08/16/2025 16:52:58 Myocardial infarct finding now present T-wave abnormality no longer present Electronically Signed On 08-16-2025 18:32:07 ACCOUNTS PAYABLE LEAD by IRENE BATISTA [email or web address]
[2025-08-16 18:00] VITALS: BP 104/66; PULSE 75; O2SAT 100
[2025-08-16 18:30] VITALS: PULSE 78; O2SAT 96
[2025-08-16 19:25] VITALS: BP 107/75; PULSE 66; O2SAT 100
== END 2025-08-16 19:26 | disposition home or self-care (01) ==
PROVIDERS: Emergency Provider Physician Assistant; PCP Nurse Practitioner
DX: R07.89 Other chest pain (principal); R10.11 Right upper quadrant pain
CPT/HCPCS: 36415; 71045; 76705; 80053; 84484; 84703; 85025; 93005; 99285